=== PATIENT | male | born 1950 | race Caucasian/White ===

== ENCOUNTER → 2016-07-27 | Outpatient (CLI) | payer SELFPAY | LOC: LAB 15:26 | PROVIDERS: ATTEND Physician Assistant Medical | DX: R91.8 Other nonspecific abnormal finding of lung field (principal); F17.210 Nicotine dependence, cigarettes, uncomplicated | CPT/HCPCS: 82565; 84520 ==

== ENCOUNTER → 2016-08-01 | Outpatient (CLI) | payer BC ==
--- NOTE | 2016-08-01 12:43 | DI ---
CT CHEST W/CONTRAST,08/01/2016 9:17 AM: Clinical History: Left upper lobe lung mass. Previous Exam: None available. Findings: Multiple helically acquired CT images are obtained through the chest with contrast, and demonstrate d iffuse COPD. There are no masses identified. The aorta is unremarkable. There is no filling defect or truncation to suggest pulmonary embolism. There is a small spiculated m ass within the right azygo-esophageal recess measuring 18 mm in diameter. Coronary artery calcifications are seen. Skeletal structures are unremarkable. There is no evidence of infiltrate nor effusion. The upper abdomen is unremarkable. A few peripheral vascular calcifications are seen. Impression: 1. 18 mm spiculated mass within the right azygoesophageal recess. 2. Diffuse COPD. 3. No evidence of pulmonary embolism.
== END ==
LOC: CT 09:06
PROVIDERS: ATTEND Physician Assistant Medical
DX: R91.8 Other nonspecific abnormal finding of lung field (principal); J44.9 Chronic obstructive pulmonary disease, unspecified; F17.200 Nicotine dependence, unspecified, uncomplicated
CPT/HCPCS: 71260